=== PATIENT | female | born 1995 | race Caucasian/White ===

== ENCOUNTER → 2021-04-28 | Outpatient (CLI) | payer SELFPAY ==
[~2021-04-28] MED LIST: CASIRIVIMAB (REGN10933) (EUA) 600 MG, IMDEVIMAB (REGN10987) (EUA) 600 MG in SODIUM CHLO... IVPB NR; SODIUM CHLORIDE 0.9% 50 ML IVPB NR; SODIUM CHLORIDE 0.9% 500 ML 500 ML in EMPTY BAG 1 BAG IV PRN
[2021-04-28 09:05] VITALS: PULSE 97; RESP 16
[2021-04-28 09:50] VITALS: BP 118/72; TEMP 98.2
== END ==
LOC: PROCWHC3 07:05
DX: O98.511 Other viral diseases complicating pregnancy, first trimester (principal); U07.1 COVID-19; Z3A.15 15 weeks gestation of pregnancy
CPT/HCPCS: 96360; M0243